=== PATIENT | male | born 1955 | race African-American/Black ===

== ENCOUNTER 2016-06-05 22:48 | Emergency (ER) | payer OTHER ==
[~2016-06-05] VITALS: Ht 182.9 cm; Wt 77.0 kg
[2016-06-05 23:15] VITALS: BP 140/90
[2016-06-06] MEDS ORDERED: PREDNISONE 20MG TABLET PO ONE
== END 2016-06-06 01:28 | disposition home or self-care (01) ==
LOC: ER 23:03
DX: J44.1 Chronic obstructive pulmonary disease with (acute) exacerbation (principal); F17.210 Nicotine dependence, cigarettes, uncomplicated
CPT/HCPCS: 99283; J7512; Z7610